=== PATIENT | male | born 1945 | race Caucasian/White ===

== ENCOUNTER 2016-10-20 06:43 | Outpatient (CLI) | payer MEDICARE, OTHER ==
[~2016-10-20] VITALS: Ht 193 cm; Wt 111.1 kg
[~2016-10-20 06:43] MED LIST: AMLO5TAB2 PO; ASPI1TAB PO; BRIM1OPD OU; CENT1TAB PO; OLIV500C PO; TRAV04OPD OU
[2016-10-20] MEDS ORDERED: NS 1,000 ML IV ONE (07:00)
[2016-10-20] MEDS ORDERED: PROPOFOL 500 MG/50 ML VIAL As Ordered ONE (07:14)
[2016-10-20] MEDS ORDERED: GENT3OPD OD (07:27)
[2016-10-20] MEDS ORDERED: LIDOCAINE 2% INJ 100 MG/5 ML SDV (FOR ANES.) As Ordered ONE (08:23)
--- NOTE | 2016-10-20 08:33 | ROOR ---
Patient Name: Pollo Sotelo Procedure Date: 10/20/2016 8:13 AM Date of : 1945 Age: 71 Room: [facility] Gender: Male Note Status: Finalized Procedure: Upper Endoscopy + Biopsies Indications: Heartburn, Follow-up of Delgado's esophagus Providers: Olu Wick MD Referring MD: AL MCKEON JR, MD Requesting Provider: Medicines: Monitored Anesthesia Care Complications: No immediate complications. Procedure: Pre-Anesthesia Assessment: - The heart rate, respiratory rate, oxygen saturations, blood pressure, adequacy of pulmonary ventilation, and response to care were monitored throughout the procedure. The Endoscope was introduced through the mouth, and advanced to the second part of duodenum. The upper GI endoscopy was accomplished without difficulty. The patient tolerated the procedure well. Findings: The Z-line was irregular and was found 40 cm from the incisors. Multiple biopsies were obtained with cold forceps for evaluation to rule out Delgado's Esophagus randomly at the gastroesophageal junction. A small hiatal hernia was present. Localized mild inflammation characterized by erythema and aphthous ulcerations was found in the gastric antrum. The exam of the duodenum was otherwise normal. Impression: - Z-line irregular, 40 cm from the incisors. - Small hiatal hernia. - Acute gastritis. - Multiple biopsies were obtained at the gastroesophageal junction. Recommendation: - Patient has a contact number available for emergencies. The signs and symptoms of potential delayed complications were discussed with the patient. Return to normal activities tomorrow. Written discharge instructions were provided to the patient. - High fiber diet. - Discharge patient to home. - Follow an antireflux regimen. - Continue present medications. - Await pathology results. - Telephone GI clinic for pathology results in 1 week. - Return to referring physician. - Repeat upper endoscopy in 3 years for surveillance based on pathology results. - Check Portal Online for Path Results.([email or web address] - The findings and recommendations were discussed with the patient's family. Olu Wick MD Olu Wick MD 10/20/2016 8:33:09 AM This report has been signed electronically. Number of Addenda: 0 Note Initiated On: 10/20/2016 8:13 AM Estimated Blood Loss: Estimated blood loss: none.
[2016-10-20] MEDS ORDERED: GLYCOPYRROLATE INJ 0.2 MG/ML 2 ML VIAL As Ordered ONE (08:45)
--- NOTE | 2016-10-20 08:55 | ROOR ---
Patient Name: Pollo Sotelo Procedure Date: 10/20/2016 8:14 AM Date of : 1945 Age: 71 Room: [facility] Gender: Male Note Status: Finalized Procedure: Total Colonoscopy to Cecum + Cold Snare Polypectomy + Biopsy Polypectomy Indications: Screening for colorectal malignant neoplasm, Last colonoscopy: 2006 Providers: Olu Wick MD Referring MD: AL MCKEON JR, MD Requesting Provider: Medicines: Monitored Anesthesia Care Complications: No immediate complications. Procedure: Pre-Anesthesia Assessment: - The heart rate, respiratory rate, oxygen saturations, blood pressure, adequacy of pulmonary ventilation, and response to care were monitored throughout the procedure. The Colonoscope was introduced through the anus and advanced to the cecum, identified by appendiceal orifice and ileocecal valve. The colonoscopy was performed without difficulty. The patient tolerated the procedure well. The quality of the bowel preparation was excellent. Findings: The perianal and digital rectal examinations were normal. Non-bleeding internal hemorrhoids were found during retroflexion. The hemorrhoids were small and Grade I (internal hemorrhoids that do not prolapse). Multiple small and large-mouthed diverticula were found in the recto-sigmoid colon, sigmoid colon and descending colon. A small polyp was found at 30 cm proximal to the anus. The polyp was sessile. The polyp was removed with a jumbo cold forceps. Resection and retrieval were complete. A medium polyp was found at 40 cm proximal to the anus. The polyp was sessile. The polyp was removed with a cold snare. Resection and retrieval were complete. A small polyp was found in the proximal transverse colon. The polyp was sessile. The polyp was removed with a jumbo cold forceps. Resection and retrieval were complete. The exam was otherwise without abnormality on direct and retroflexion views. Impression: - Non-bleeding internal hemorrhoids. - Diverticulosis in the recto-sigmoid colon, in the sigmoid colon and in the descending colon. - One small polyp at 30 cm proximal to the anus, removed with a jumbo cold forceps. Resected and retrieved. - One medium polyp at 40 cm proximal to the anus, removed with a cold snare. Resected and retrieved. - One small polyp in the proximal transverse colon, removed with a jumbo cold forceps. Resected and retrieved. - The examination was otherwise normal on direct and retroflexion views. - The exam was otherwise normal to the cecum. Recommendation: - Patient has a contact number available for emergencies. The signs and symptoms of potential delayed complications were discussed with the patient. Return to normal activities tomorrow. Written discharge instructions were provided to the patient. - High fiber diet. - Discharge patient to home. - Continue present medications. - Await pathology results. - Telephone GI clinic for pathology results in 1 week. - Check Portal Online for Path Results.([email or web address]) - Repeat colonoscopy in 5 years for surveillance based on pathology results. - The findings and recommendations were discussed with the patient's family. Olu Wick MD Olu Wick MD 10/20/2016 8:55:13 AM This report has been signed electronically. Number of Addenda: 0 Note Initiated On: 10/20/2016 8:14 AM Estimated Blood Loss: Estimated blood loss: none.
[2016-10-20 09:20] VITALS: BP 148/77
== END 2016-10-20 09:22 | disposition home or self-care (01) ==
LOC: M OPP 06:43
PROVIDERS: ATTEND Internal Medicine Gastroenterology
DX: Z12.11 Encounter for screening for malignant neoplasm of colon (principal); K64.0 First degree hemorrhoids; K57.30 Diverticulosis of large intestine without perforation or abscess without bleeding; D12.5 Benign neoplasm of sigmoid colon; D12.3 Benign neoplasm of transverse colon; R12 Heartburn; K22.8 Other specified diseases of esophagus; K44.9 Diaphragmatic hernia without obstruction or gangrene; K22.70 Barrett's esophagus without dysplasia; I10 Essential (primary) hypertension; K59.00 Constipation, unspecified; G51.0 Bell's palsy; A69.20 Lyme disease, unspecified; Z86.61 Personal history of infections of the central nervous system; Z79.899 Other long term (current) drug therapy; Z79.82 Long term (current) use of aspirin

== ENCOUNTER → 2017-06-08 | Outpatient (REF) | payer MEDICARE, OTHER ==
[2017-06-10 12:29] LABS: HEPATITIS C VIRUS ABY INDEX < 0.0 INDEX (<0.8)
== END ==
LOC: M LAB REF 16:40
DX: Z01.89 Encounter for other specified special examinations (principal)
CPT/HCPCS: 86803

== ENCOUNTER 2018-03-07 06:46 | Day surgery (SDC) | payer MEDICARE, OTHER ==
[~2018-03-07] VITALS: Ht 190.5 cm; Wt 109.0 kg
[~2018-03-07 06:46] MED LIST changes: -AMLO5TAB2 PO; +AMLO5TAB6 PO; +CRES10TA32 PO; +GENT3OPD OD; +LR 1,000 ML IV ONE; +OMEP40CA2 PO; +ceFAZolin SOD 1 GM in D5W MINI-BAG PLUS 50 ML IV ONE
[2018-03-07] MEDS ORDERED: PROPOFOL 200 MG/20 ML VIAL As Ordered ONE (08:04)
[2018-03-07] MEDS ORDERED: fentaNYL 100 MCG/2 ML INJECTION (J3010) As Ordered ONE ×2 (08:04→09:16)
[2018-03-07] MEDS ORDERED: MIDAZOLAM INJ 2 MG/2 ML VIAL (J2250) As Ordered ONE (08:04)
[2018-03-07] MEDS ORDERED: METOCLOPRAMIDE INJ 10MG/2ML VIAL (J2765) As Ordered ONE (08:04)
[2018-03-07] MEDS ORDERED: LIDOCAINE 2% INJ 100 MG/5 ML SDV (FOR ANES.) As Ordered ONE (08:04)
[2018-03-07] MEDS ORDERED: SUCCINYLCHOLINE 100 MG/5 ML SYRINGE (J0330) As Ordered ONE (08:04)
[2018-03-07] MEDS ORDERED: ONDANSETRON 4MG/2ML VIAL (J2405) As Ordered ONE (08:04)
[2018-03-07] MEDS ORDERED: BUPIVACAINE/EPIN 0.25% 30 ML VIAL As Ordered ONE (08:35)
[2018-03-07] MEDS ORDERED: BUPIVACAINE LIPOSOME/PF 1.3% 20ML VIAL (13.3MG/ML)(EXPAREL)(C9290 PER1MG) As Ordered ONE (08:36)
[2018-03-07] MEDS ORDERED: BUPIVACAINE HCL 0.25% 30 ML VIAL As Ordered ONE (08:36)
[2018-03-07] MEDS ORDERED: SUGAMMADEX SODIUM 500 MG/5 ML VIAL (BRIDION) As Ordered ONE (09:39)
[2018-03-07] MEDS ORDERED: LR 1,000 ML IV SCH ×2 (10:15→10:30)
[2018-03-07] MEDS ORDERED: NORCO, ANEXSIA 5/325MG TABLET (HYDROcodone/ACETAMINOPHEN) PO PRN (10:15)
[2018-03-07] MEDS ORDERED: ONDANSETRON 4MG/2ML VIAL (J2405) IV PRN ×2 (10:15→10:30)
[2018-03-07] MEDS ORDERED: PERCOCET 5MG/325MG TAB PO PRN (10:30)
[2018-03-07] MEDS ORDERED: fentaNYL 100 MCG/2 ML INJECTION (J3010) IV PRN (10:30)
[2018-03-07] MEDS ORDERED: MEPERIDINE INJ 25 MG/ML VIAL (J2175) IV PRN (10:30)
[2018-03-07] MEDS ORDERED: METOCLOPRAMIDE INJ 10MG/2ML VIAL (J2765) IV PRN (10:30)
[2018-03-07] MEDS ORDERED: KETOROLAC 30 MG/ML VIAL (J1885) IV SCH (11:00)
[2018-03-07 11:20] VITALS: BP 165/80
--- NOTE | 2018-03-10 16:37 | RO ---
DATE OF PROCEDURE: 03/07/2018 PREOPERATIVE DIAGNOSIS: Umbilical hernia. POSTOPERATIVE DIAGNOSIS: Umbilical hernia. PROCEDURE: Umbilical hernia repair. SURGEON: Dr. Lex Long ANESTHESIA: General endotracheal anesthesia ESTIMATED BLOOD LOSS: Was minimal. FLUIDS: Crystalloid. BRIEF PROCEDURE SUMMARY: The patient was taken operating room and was given general anesthesia after adequate anesthesia and preoperative antibiotics were given the patient was prepped and draped in sterile fashion. Next a periumbilical incision was made with skin knife. Blunt dissection was carried down to fascia. Fascia was circumferentially cleared of hernia sac and then the hernia sac was transected at the base. The fascial defect was not significantly large and thus this was closed with two [id number] Ethilon sutures. The dermis was approximated with 3-0 Vicryl, 4-0 Vicryl was used to approximate the skin. Steri-Strips and a dry sterile dressing was applied. The patient was awakened from his anesthesia, extubated, brought to the recovery room awake, alert and hemodynamically stable. Sponge and needle counts correct times two.
== END 2018-03-07 11:30 | disposition home or self-care (01) ==
LOC: M SDC 06:46
PROVIDERS: ATTEND Surgery
DX: K42.9 Umbilical hernia without obstruction or gangrene (principal); I10 Essential (primary) hypertension; E78.00 Pure hypercholesterolemia, unspecified; K21.9 Gastro-esophageal reflux disease without esophagitis; Q76.49 Other congenital malformations of spine, not associated with scoliosis; Z79.899 Other long term (current) drug therapy; Z86.61 Personal history of infections of the central nervous system; Z86.19 Personal history of other infectious and parasitic diseases; Z87.891 Personal history of nicotine dependence
CPT/HCPCS: 49585; 88302; C9290; J0330; J0690; J2250; J2405; J2765; J3010

== ENCOUNTER → 2019-09-12 | Outpatient (REF) | payer MEDICARE, OTHER ==
[~2019-09-12] MED LIST changes: +AMLO1TAB24 PO; -AMLO5TAB6 PO; -ASPI1TAB PO; +ASPI81TA26 PO; +CRES10TA PO; -CRES10TA32 PO; +GENT0.3S36 OD; -GENT3OPD OD; -LR 1,000 ML IV ONE; -OMEP40CA2 PO; +OMEP40CA97 PO; -ceFAZolin SOD 1 GM in D5W MINI-BAG PLUS 50 ML IV ONE
[2019-11-08 12:27] LABS: PSA TOTAL See Separate Report
== END ==
LOC: M LAB REF 15:14
PROVIDERS: ATTEND Internal Medicine
DX: N40.0 Benign prostatic hyperplasia without lower urinary tract symptoms (principal); R97.20 Elevated prostate specific antigen [PSA]

== ENCOUNTER → 2021-01-27 | Outpatient (REF) | payer MEDICARE, OTHER ==
[~2021-01-27] MED LIST changes: +OMEP40CA4 PO; -OMEP40CA97 PO
[2021-01-27 12:02] LABS: BACTERIA, URINE AUTO NEGATIVE (NEGATIVE); MUCUS, URINE SMALL (NEGATIVE); RBC, URINE AUTO TNTC /HPF (0-3); SQUAMOUS EPITHELIAL CELL UR AU 0 /HPF (0-6); WBC, URINE AUTO 1 /HPF (0-3)
== END ==
LOC: M LAB REF 11:20
PROVIDERS: ATTEND Internal Medicine
DX: R31.0 Gross hematuria (principal)

== ENCOUNTER → 2021-01-28 | Outpatient (CLI) | payer MEDICARE, OTHER ==
[~2021-01-28] MED LIST changes: +ISOVUE-370 76% 100ML VIAL ONE
== END ==
LOC: M PLAIMG 10:42
PROVIDERS: ATTEND Internal Medicine
DX: N40.1 Benign prostatic hyperplasia with lower urinary tract symptoms (principal); R31.0 Gross hematuria
CPT/HCPCS: 74178; Q9967

== ENCOUNTER → 2021-03-04 | Outpatient (REF) | payer MEDICARE, OTHER ==
[~2021-03-04] MED LIST changes: -ISOVUE-370 76% 100ML VIAL ONE
[2021-03-04 18:34] LABS: APPEARANCE, URINE CLEAR (CLEAR); BACTERIA, URINE AUTO NEGATIVE (NEGATIVE); BILIRUBIN, URINE AUTO NEGATIVE (NEGATIVE); BLOOD, URINE BLOOD NEGATIVE (NEGATIVE); COLOR, URINE YELLOW (YELLOW); GLUCOSE, URINE (UA) AUTO NEGATIVE (NEGATIVE); KETONE, URINE AUTO TRACE mg/dL (NEGATIVE); LEUKOCYTE ESTERASE, URINE AUTO 2+ (NEGATIVE); MUCUS, URINE SMALL (NEGATIVE); NITRITE, URINE AUTO NEGATIVE (NEGATIVE); PROTEIN, URINE AUTO NEGATIVE (NEGATIVE); RBC, URINE AUTO 2 /HPF (0-3); SPECIFIC GRAVITY URINE AUTO 1.017 (1.002-1.035); SQUAMOUS EPITHELIAL CELL UR AU 0 /HPF (0-6); UROBILINOGEN, URINE AUTO 0.2 mg/dL (0.0-2.0); WBC, URINE AUTO 21 /HPF (0-3)
== END ==
LOC: M SMT 17:01
PROVIDERS: ATTEND Physician Assistant
DX: N40.1 Benign prostatic hyperplasia with lower urinary tract symptoms (principal)

== ENCOUNTER → 2021-05-14 | Outpatient (REF) | payer MEDICARE, OTHER ==
[2021-05-14 14:13] LABS: APPEARANCE, URINE MANUAL TURBID (CLEAR); COLOR, URINE MANUAL RED (YELLOW)
[2021-05-14 14:14] LABS: BILIRUBIN, URINE MANUAL NEGATIVE (NEGATIVE); BLOOD URINE MANUAL POSITIVE (NEGATIVE); GLUCOSE, URINE (UA) MANUAL NEGATIVE (NEGATIVE); KETONE, URINE MANUAL NEGATIVE (NEGATIVE); LEUKOCYTE ESTERASE, URINE MAN TRACE (NEGATIVE); NITRITE, URINE MANUAL NEGATIVE (NEGATIVE); PROTEIN, URINE MANUAL 2+ mg/dL (NEGATIVE); UROBILINOGEN, URINE MANUAL NORMAL (NORMAL)
[2021-05-14 14:23] LABS: BACTERIA, URINE MOD AMOUNT; HYALINE CAST, URINE NONE SEEN /lpf (0-1); RBC, URINE TNTC /hpf (0-3); SQUAMOUS EPITHELIAL CELL URINE NONE SEEN /hpf (SMALL AMT); WBC, URINE TNTC /hpf (0-3)
== END ==
LOC: M SMT 12:40
PROVIDERS: ATTEND Physician Assistant
DX: R31.0 Gross hematuria (principal)

== ENCOUNTER → 2021-06-02 | Outpatient (CLI) | payer MEDICARE, OTHER ==
[~2021-06-02] MED LIST changes: +BIMA01SOL OD; +FINA5TAB2 PO; +FLOM0.4C39 PO; +OLIV250C PO
== END ==
LOC: M WUC 09:07
PROVIDERS: ATTEND Physician Assistant
DX: Z01.818 Encounter for other preprocedural examination (principal); R91.1 Solitary pulmonary nodule

== ENCOUNTER → 2021-06-02 | Outpatient (REF) | payer MEDICARE, OTHER ==
[2021-06-02 12:18] LABS: APPEARANCE, URINE CLEAR (CLEAR); BACTERIA, URINE AUTO NEGATIVE (NEGATIVE); BILIRUBIN, URINE AUTO NEGATIVE (NEGATIVE); BLOOD, URINE BLOOD NEGATIVE (NEGATIVE); COLOR, URINE YELLOW (YELLOW); GLUCOSE, URINE (UA) AUTO NEGATIVE (NEGATIVE); KETONE, URINE AUTO NEGATIVE (NEGATIVE); LEUKOCYTE ESTERASE, URINE AUTO NEGATIVE (NEGATIVE); NITRITE, URINE AUTO NEGATIVE (NEGATIVE); PROTEIN, URINE AUTO NEGATIVE (NEGATIVE); RBC, URINE AUTO 0 /HPF (0-3); SPECIFIC GRAVITY URINE AUTO 1.013 (1.002-1.035); SQUAMOUS EPITHELIAL CELL UR AU 0 /HPF (0-6); UROBILINOGEN, URINE AUTO 0.2 mg/dL (0.0-2.0); WBC, URINE AUTO 0 /HPF (0-3)
== END ==
LOC: M LAB REF 11:56
PROVIDERS: ATTEND Internal Medicine
DX: Z01.818 Encounter for other preprocedural examination (principal)

== ENCOUNTER → 2021-06-05 | Outpatient (CLI) | payer MEDICARE, OTHER | LOC: M LABSMTC 10:21 | PROVIDERS: ATTEND Anesthesiology | DX: Z01.812 Encounter for preprocedural laboratory examination (principal); Z20.822 Contact with and (suspected) exposure to COVID-19 ==

== ENCOUNTER 2021-06-10 07:20 | Day surgery (SDC) | payer MEDICARE, OTHER ==
[~2021-06-10] VITALS: Ht 190.5 cm; Wt 114.9 kg
[~2021-06-10 07:20] MED LIST changes: +LIDOCAINE 1% MDV 20ML VIAL SQ PRN; +LR 1,000 ML IV ONE; +ceFAZolin SOD 2 GM in IV 1 EA IV ONE
[2021-06-10] MEDS ORDERED: MIDAZOLAM INJ 2MG/2ML VIAL (J2250 PER 1MG) As Ordered ONE (07:51)
[2021-06-10] MEDS ORDERED: LIDOCAINE 2% 100MG/5ML SDV (FOR ANES.) As Ordered ONE (07:52)
[2021-06-10] MEDS ORDERED: fentaNYL 100 MCG/2 ML INJECTION As Ordered ONE (07:52)
[2021-06-10] MEDS ORDERED: ONDANSETRON 4MG/2ML VIAL As Ordered ONE (07:52)
[2021-06-10] MEDS ORDERED: dexameTHASONE 4 MG/ML 1ML VIAL (J1100 PER 1MG) As Ordered ONE (07:52)
[2021-06-10] MEDS ORDERED: propofoL 200 MG/20 ML VIAL As Ordered ONE (07:52)
[2021-06-10] MEDS ORDERED: ISOVUE-300 61% 50ML VIAL As Ordered ONE (08:28)
[2021-06-10] MEDS ORDERED: ACETAMINOPHEN 1000MG 100ML IV BTL (OFIRMEV) (J0131 PER 10MG) As Ordered ONE (09:05)
[2021-06-10] MEDS ORDERED: ePHEDrine SULFATE 25 MG/5 ML(5MG/ML) SYRINGE As Ordered ONE (09:47)
[2021-06-10] MEDS ORDERED: ONDANSETRON 4MG/2ML VIAL IV PRN (10:15)
[2021-06-10] MEDS ORDERED: LR 1,000 ML IV SCH (10:15)
[2021-06-10] MEDS ORDERED: oxyCODONE 5MG TAB PO PRN (10:15)
[2021-06-10] MEDS ORDERED: fentaNYL 100 MCG/2 ML INJECTION IV PRN (10:15)
[2021-06-10] MEDS ORDERED: ACETAMINOPHEN TAB 650MG DOSE (2X325MG) PO PRN (10:20)
[2021-06-10 10:44] VITALS: BP 161/77
== END 2021-06-10 11:08 | disposition home or self-care (01) ==
LOC: M SDC 07:20
PROVIDERS: ATTEND Urology
DX: R31.0 Gross hematuria (principal); I10 Essential (primary) hypertension; N40.0 Benign prostatic hyperplasia without lower urinary tract symptoms; E78.5 Hyperlipidemia, unspecified; K21.9 Gastro-esophageal reflux disease without esophagitis; Z79.899 Other long term (current) drug therapy; E66.9 Obesity, unspecified
CPT/HCPCS: 52332; 74420; C1769; C2617; J0131; J0690; J1100; J2250; J2405; J3010; Q9967

== ENCOUNTER → 2021-06-19 | Outpatient (CLI) | payer MEDICARE, OTHER ==
[~2021-06-19] MED LIST changes: -LIDOCAINE 1% MDV 20ML VIAL SQ PRN; -LR 1,000 ML IV ONE; -ceFAZolin SOD 2 GM in IV 1 EA IV ONE
== END ==
LOC: M RAD 13:42
PROVIDERS: ATTEND Internal Medicine
DX: R91.1 Solitary pulmonary nodule (principal)

== ENCOUNTER → 2021-12-09 | Outpatient (CLI) | payer MEDICARE, OTHER | LOC: M LABSMTC 09:14 | PROVIDERS: ATTEND Anesthesiology | DX: Z01.812 Encounter for preprocedural laboratory examination (principal); Z11.52 Encounter for screening for COVID-19 ==

== ENCOUNTER 2021-12-14 07:33 | Day surgery (SDC) | payer MEDICARE, OTHER ==
[~2021-12-14] VITALS: Ht 190.5 cm; Wt 110.6 kg
[~2021-12-14 07:33] MED LIST changes: +NS 1,000 ML IV ONE
[2021-12-14] MEDS ORDERED: fentaNYL 100 MCG/2 ML INJECTION As Ordered ONE (08:44)
[2021-12-14] MEDS ORDERED: propofoL 200 MG/20 ML VIAL As Ordered ONE (08:44)
[2021-12-14] MEDS ORDERED: LIDOCAINE 2% 100MG/5ML SDV (FOR ANES.) As Ordered ONE (08:44)
[2021-12-14 09:42] VITALS: BP 181/85
== END 2021-12-14 09:51 | disposition home or self-care (01) ==
LOC: M OPP 07:33
PROVIDERS: ATTEND Internal Medicine Gastroenterology
DX: Z12.11 Encounter for screening for malignant neoplasm of colon (principal); Z86.010 Personal history of colon polyps; K57.30 Diverticulosis of large intestine without perforation or abscess without bleeding; K64.0 First degree hemorrhoids; K44.9 Diaphragmatic hernia without obstruction or gangrene; K21.00 Gastro-esophageal reflux disease with esophagitis, without bleeding; Z79.02 Long term (current) use of antithrombotics/antiplatelets; Z79.899 Other long term (current) drug therapy; Z80.3 Family history of malignant neoplasm of breast; I10 Essential (primary) hypertension; F41.9 Anxiety disorder, unspecified; E78.00 Pure hypercholesterolemia, unspecified; N40.0 Benign prostatic hyperplasia without lower urinary tract symptoms
CPT/HCPCS: 43239; 88305; G0105; J3010

== ENCOUNTER → 2022-03-12 | Outpatient (REF) | payer MEDICARE, OTHER ==
[~2022-03-12] MED LIST changes: -NS 1,000 ML IV ONE
[2022-03-18 13:08] LABS: H PYLORI STOOL ANTIGEN Negative (Negative)
== END ==
LOC: M LAB REF 14:21
PROVIDERS: ATTEND Internal Medicine
DX: R19.7 Diarrhea, unspecified (principal)

== ENCOUNTER → 2022-04-21 | Outpatient (REF) | payer MEDICARE, OTHER ==
[2022-04-21 13:57] LABS: APPEARANCE, URINE HAZY (CLEAR); BACTERIA, URINE AUTO NEGATIVE (NEGATIVE); BILIRUBIN, URINE AUTO NEGATIVE (NEGATIVE); BLOOD, URINE BLOOD NEGATIVE (NEGATIVE); COLOR, URINE AMBER (YELLOW); GLUCOSE, URINE (UA) AUTO NEGATIVE (NEGATIVE); KETONE, URINE AUTO TRACE mg/dL (NEGATIVE); LEUKOCYTE ESTERASE, URINE AUTO NEGATIVE (NEGATIVE); MUCUS, URINE SMALL (NEGATIVE); NITRITE, URINE AUTO NEGATIVE (NEGATIVE); PROTEIN, URINE AUTO NEGATIVE (NEGATIVE); RBC, URINE AUTO 1 /HPF (0-3); SPECIFIC GRAVITY URINE AUTO 1.018 (1.002-1.035); SQUAMOUS EPITHELIAL CELL UR AU 0 /HPF (0-6); UROBILINOGEN, URINE AUTO 0.2 mg/dL (0.0-2.0); WBC, URINE AUTO 1 /HPF (0-3)
== END ==
LOC: M SMT 13:12
PROVIDERS: ATTEND Physician Assistant
DX: N40.1 Benign prostatic hyperplasia with lower urinary tract symptoms (principal); R35.0 Frequency of micturition; R35.1 Nocturia; Z80.42 Family history of malignant neoplasm of prostate; Z87.898 Personal history of other specified conditions; Z79.899 Other long term (current) drug therapy
CPT/HCPCS: 81001; 87086; G0463

== ENCOUNTER → 2022-11-29 | Outpatient (REF) | payer MEDICARE, OTHER ==
[2022-11-29 18:09] LABS: APPEARANCE, URINE CLEAR (CLEAR); BACTERIA, URINE AUTO NEGATIVE (NEGATIVE); BILIRUBIN, URINE AUTO NEGATIVE (NEGATIVE); BLOOD, URINE BLOOD NEGATIVE (NEGATIVE); COLOR, URINE YELLOW (YELLOW); GLUCOSE, URINE (UA) AUTO NEGATIVE (NEGATIVE); KETONE, URINE AUTO NEGATIVE (NEGATIVE); LEUKOCYTE ESTERASE, URINE AUTO TRACE (NEGATIVE); NITRITE, URINE AUTO NEGATIVE (NEGATIVE); PROTEIN, URINE AUTO NEGATIVE (NEGATIVE); RBC, URINE AUTO 0 /HPF (0-3); SPECIFIC GRAVITY URINE AUTO 1.018 (1.002-1.035); SQUAMOUS EPITHELIAL CELL UR AU 0 /HPF (0-6); UROBILINOGEN, URINE AUTO 0.2 mg/dL (0.0-2.0); WBC, URINE AUTO 0 /HPF (0-3)
== END ==
LOC: M SMT 16:56
PROVIDERS: ATTEND Physician Assistant
DX: R31.0 Gross hematuria (principal)

== ENCOUNTER → 2023-05-26 | Outpatient (REF) | payer MEDICARE, OTHER ==
[2023-05-26 17:48] LABS: TOTAL 25(OH) VITAMIN D 32.3 NG/ML (20.0-100.0)
== END ==
LOC: M LAB REF 11:43
PROVIDERS: ATTEND Internal Medicine
DX: H35.3131 Nonexudative age-related macular degeneration, bilateral, early dry stage (principal); Z79.899 Other long term (current) drug therapy

== ENCOUNTER → 2023-06-07 | Outpatient (CLI) | payer MEDICARE, OTHER ==
[~2023-06-07] MED LIST changes: +ACET-683 PO; +AREDS PO; +BACI1TAB20 PO; +PRES10CA2 PO; +XALA0.007 OU
[2023-06-07 14:04] LABS: BASO % 0.3 % (0.0-1.0); HEMATOCRIT 39.4 % (42.0-52.0); HEMOGLOBIN 13.5 g/dl (13.5-17.5); LYMPH # 0.6 10^3/uL (1.5-5.0); LYMPH % 8.1 % (24.0-44.0); MEAN CORPUSCULAR HEMOGLOBIN 31.5 pg (27.0-33.0); MEAN CORPUSCULAR HGB CONC 34.3 g/dl (32.0-36.5); MEAN CORPUSCULAR VOLUME 92.1 fl (80.0-96.0); MONO # 0.5 10^3/uL (0.0-0.8); MONO % 7.1 % (2.0-8.0); NEUTROPHILS # 5.8 10^3/uL (1.5-8.5); NEUTROPHILS % 83.9 % (36.0-66.0); PLATELET COUNT, AUTOMATED 117 10^3/uL (150-450); RED BLOOD COUNT 4.28 10^6/uL (4.30-6.10); WHITE BLOOD COUNT 6.9 10^3/uL (4.0-10.0)
[2023-06-07 14:28] LABS: LIPASE 30 U/L (12-53)
[2023-06-07 14:29] LABS: AMYLASE 39 U/L (30-118)
[2023-06-07 14:30] LABS: ALBUMIN 3.2 G/DL (3.2-5.2); ALKALINE PHOSPHATASE 77 U/L (46-116); ALT/SGPT 15 U/L (7.0-40); AST/SGOT 19 U/L (<34); BLOOD UREA NITROGEN 18 MG/DL (9-23); CALCIUM LEVEL 8.6 MG/DL (8.3-10.6); CARBON DIOXIDE LEVEL 26 MMOL/L (20-31); CHLORIDE LEVEL 100 MMOL/L (98-107); CREATININE FOR GFR 1.12 MG/DL (0.70-1.30); GLOMERULAR FILTRATION RATE > 60.0 (>42); GLUCOSE, FASTING 152 MG/DL (74-106); POTASSIUM SERUM 4.1 MMOL/L (3.5-5.1); SODIUM LEVEL 133 MMOL/L (136-145); TOTAL PROTEIN 6.2 G/DL (5.7-8.2)
== END ==
LOC: M WUC 10:37
PROVIDERS: ATTEND Physician Assistant
DX: R53.83 Other fatigue (principal); R53.1 Weakness; R05.9 Cough, unspecified

== ENCOUNTER 2023-06-08 08:46 | Inpatient (IN) | payer MEDICARE, OTHER ==
[~2023-06-08] VITALS: Ht 190.5 cm; Wt 119.0 kg
[~2023-06-08 08:46] MED LIST changes: -ACET-683 PO; -AREDS PO; -BACI1TAB20 PO; -PRES10CA2 PO; -XALA0.007 OU
[2023-06-08] MEDS ORDERED: AREDS PO (09:04)
[2023-06-08] MEDS ORDERED: BACI1TAB20 PO (09:04)
[2023-06-08] MEDS ORDERED: ACET-683 PO (09:13)
[2023-06-08] MEDS: NS 1,000 ML IV ONE (10:05)
[2023-06-08 10:25] LABS: BASO % 0.2 % (0.0-1.0); EOS % 0.2 % (0.0-3.0); HEMATOCRIT 37.6 % (42.0-52.0); HEMOGLOBIN 13.1 g/dl (13.5-17.5); LYMPH # 0.7 10^3/uL (1.5-5.0); LYMPH % 10.7 % (24.0-44.0); MEAN CORPUSCULAR HEMOGLOBIN 31.2 pg (27.0-33.0); MEAN CORPUSCULAR HGB CONC 34.8 g/dl (32.0-36.5); MEAN CORPUSCULAR VOLUME 89.5 fl (80.0-96.0); MONO # 0.5 10^3/uL (0.0-0.8); MONO % 8.2 % (2.0-8.0); NEUTROPHILS # 5.2 10^3/uL (1.5-8.5); NEUTROPHILS % 80.4 % (36.0-66.0); PLATELET COUNT, AUTOMATED 104 10^3/uL (150-450); WHITE BLOOD COUNT 6.5 10^3/uL (4.0-10.0)
[2023-06-08 10:43] LABS: APPEARANCE, URINE HAZY (CLEAR); BACTERIA, URINE AUTO NEGATIVE (NEGATIVE); BILIRUBIN, URINE AUTO NEGATIVE (NEGATIVE); BLOOD, URINE BLOOD NEGATIVE (NEGATIVE); COLOR, URINE AMBER (YELLOW); GLUCOSE, URINE (UA) AUTO NEGATIVE (NEGATIVE); KETONE, URINE AUTO TRACE mg/dL (NEGATIVE); LEUKOCYTE ESTERASE, URINE AUTO NEGATIVE (NEGATIVE); MUCUS, URINE MODERATE (NEGATIVE); NITRITE, URINE AUTO NEGATIVE (NEGATIVE); PROTEIN, URINE AUTO 2+ mg/dL (NEGATIVE); RBC, URINE AUTO 10 /HPF (0-3); SPECIFIC GRAVITY URINE AUTO 1.032 (1.002-1.035); SQUAMOUS EPITHELIAL CELL UR AU 0 /HPF (0-6); WBC, URINE AUTO 3 /HPF (0-3)
[2023-06-08 10:57] LABS: ALBUMIN 3.1 G/DL (3.2-5.2); ALKALINE PHOSPHATASE 75 U/L (46-116); ALT/SGPT 20 U/L (7.0-40); AST/SGOT 34 U/L (<34); BILIRUBIN,TOTAL 0.9 MG/DL (0.3-1.2); BLOOD UREA NITROGEN 18 MG/DL (9-23); CALCIUM LEVEL 8.5 MG/DL (8.3-10.6); CARBON DIOXIDE LEVEL 26 MMOL/L (20-31); CHLORIDE LEVEL 99 MMOL/L (98-107); CREATININE FOR GFR 1.05 MG/DL (0.70-1.30); GLOMERULAR FILTRATION RATE > 60.0 (>42); GLUCOSE, FASTING 111 MG/DL (74-106); MAGNESIUM LEVEL 1.8 MG/DL (1.8-2.4); POTASSIUM SERUM 3.9 MMOL/L (3.5-5.1); SODIUM LEVEL 132 MMOL/L (136-145); TOTAL PROTEIN 6.2 G/DL (5.7-8.2)
[2023-06-08 10:59] LABS: THYROID STIMULATING HORMONE 1.857 uIU/ML (0.55-4.78)
[2023-06-08 11:00] LABS: FREE T4 1.15 NG/DL (0.89-1.76)
[2023-06-08] MEDS: ACETAMINOPHEN TAB 650MG DOSE (2X325MG) PO ONE (11:05)
[2023-06-08] MEDS ORDERED: ISOVUE-370 76% 100ML VIAL As Ordered ONE (11:22)
[2023-06-08] MEDS: IBUPROFEN 600MG TAB PO ONE (12:43)
[2023-06-08] MEDS: cefTRIAXone SOD 1 GM in D5W MINI-BAG PLUS 50 ML IV ONE (12:44)
[2023-06-08] MEDS ORDERED: MAALOX 30 ML SUSP *UDC PO PRN (13:30)
[2023-06-08] MEDS ORDERED: MOM 30ML SUSPENSION UDC PO PRN (13:30)
[2023-06-08] MEDS: ALBUTEROL SULFATE 2.5MG/0.5ML INH NEB SOLN NEB ONE (13:38)
[2023-06-08] MEDS ORDERED: XALA0.007 OU (13:58)
[2023-06-08] MEDS ORDERED: PRES10CA2 PO (13:58)
[2023-06-08] MEDS ORDERED: HOME MED LIST COMPLETE! XX SCH (14:00)
[2023-06-08] MEDS: DOCUSATE SODIUM 100MG CAPSULE PO SCH (14:26)
[2023-06-08] MEDS: LevoFLOXacin IV 750 MG in IV 1 EA IV SCH (14:26)
[2023-06-08 14:27] LABS: PROCALCITONIN 0.22 ng/ml
[2023-06-08] MEDS: NS 1,000 ML IV SCH (14:27)
[2023-06-08] MEDS: guaiFENesin ER TABLET 600 MG TAB PO SCH (14:27)
[2023-06-08] MEDS: DOXYCYCLINE HYCLATE 100MG TABLET PO ONE (14:27)
[2023-06-08 15:01] VITALS: BP 121/57; TEMP 97.8; O2SAT 94
[2023-06-08 20:00] VITALS: BP 162/97; TEMP 99.9; O2SAT 97
[2023-06-08] MEDS: BRIMONIDINE 0.1% OPHTH SOLN 5ML OU SCH (20:01)
[2023-06-08] MEDS: LACTOBACILLUS ACIDOPHILUS CAP (BACID) PO SCH (20:01)
[2023-06-08] MEDS: TAMSULOSIN 0.4 MG CAP PO SCH (20:01)
[2023-06-09] VITALS (7 sets, daily range): BP systolic 140–158; BP diastolic 63–78; TEMP 97.1–101.8; O2SAT 93–97
[2023-06-09] MEDS: ACETAMINOPHEN TAB 650MG DOSE (2X325MG) PO PRN (00:23)
[2023-06-09 06:27] LABS: BASO % 0.2 % (0.0-1.0); EOS % 0.2 % (0.0-3.0); HEMATOCRIT 34.4 % (42.0-52.0); LYMPH # 0.6 10^3/uL (1.5-5.0); LYMPH % 12.6 % (24.0-44.0); MEAN CORPUSCULAR HEMOGLOBIN 31.4 pg (27.0-33.0); MEAN CORPUSCULAR HGB CONC 34.9 g/dl (32.0-36.5); MEAN CORPUSCULAR VOLUME 90.1 fl (80.0-96.0); MONO # 0.5 10^3/uL (0.0-0.8); MONO % 11.1 % (2.0-8.0); NEUTROPHILS # 3.5 10^3/uL (1.5-8.5); NEUTROPHILS % 75.5 % (36.0-66.0); RED BLOOD COUNT 3.82 10^6/uL (4.30-6.10); WHITE BLOOD COUNT 4.6 10^3/uL (4.0-10.0)
[2023-06-09 06:30] LABS: BLOOD UREA NITROGEN 22 MG/DL (9-23); CARBON DIOXIDE LEVEL 21 MMOL/L (20-31); CHLORIDE LEVEL 103 MMOL/L (98-107); CREATININE FOR GFR 1.06 MG/DL (0.70-1.30); GLOMERULAR FILTRATION RATE > 60.0 (>42); GLUCOSE, FASTING 108 MG/DL (74-106); MAGNESIUM LEVEL 1.6 MG/DL (1.8-2.4); POTASSIUM SERUM 3.9 MMOL/L (3.5-5.1); SODIUM LEVEL 133 MMOL/L (136-145)
[2023-06-09 06:55] LABS: PLATELET COUNT, AUTOMATED 89 10^3/uL (150-450)
[2023-06-09] MEDS: ROSUVASTATIN 10 MG TAB (CRESTOR) PO SCH (08:47)
[2023-06-09] MEDS: OMEPRAZOLE 20MG CAP PO SCH (08:47)
[2023-06-09] MEDS: FINASTERIDE 5MG TAB PO SCH (08:47)
[2023-06-09] MEDS: amLODIPine 5 MG TAB PO SCH (08:48)
[2023-06-09] MEDS: MAG SULF 1GM/100ML (MAG RUN) 1 GM in IV 1 EA IV SCH (08:48)
[2023-06-09] MEDS: LATANOPROST 0.005% OPHTH SOLN 2.5 ML OU SCH ×2 (08:49→20:07)
[2023-06-09] MEDS: MULTIVITAMINS/MINERALS THERAP 1 TAB PO SCH (08:57)
[2023-06-09] MEDS: ENOXAPARIN 40MG/0.4ML SYRINGE (J1650 PER 10MG) SC SCH (09:00)
[2023-06-10 03:24] VITALS: BP 152/94; TEMP 97.7; O2SAT 95
[2023-06-10 05:45] LABS: BASO % 0.2 % (0.0-1.0); EOS % 0.8 % (0.0-3.0); HEMATOCRIT 36.9 % (42.0-52.0); HEMOGLOBIN 12.9 g/dl (13.5-17.5); LYMPH # 0.6 10^3/uL (1.5-5.0); LYMPH % 12.3 % (24.0-44.0); MEAN CORPUSCULAR HEMOGLOBIN 31.3 pg (27.0-33.0); MEAN CORPUSCULAR VOLUME 89.6 fl (80.0-96.0); MONO # 0.4 10^3/uL (0.0-0.8); MONO % 8.6 % (2.0-8.0); NEUTROPHILS # 3.8 10^3/uL (1.5-8.5); NEUTROPHILS % 77.5 % (36.0-66.0); PLATELET COUNT, AUTOMATED 122 10^3/uL (150-450); RED BLOOD COUNT 4.12 10^6/uL (4.30-6.10); WHITE BLOOD COUNT 4.9 10^3/uL (4.0-10.0)
[2023-06-10 06:13] LABS: BLOOD UREA NITROGEN 17 MG/DL (9-23); CALCIUM LEVEL 7.8 MG/DL (8.3-10.6); CARBON DIOXIDE LEVEL 23 MMOL/L (20-31); CHLORIDE LEVEL 104 MMOL/L (98-107); CREATININE FOR GFR 0.83 MG/DL (0.70-1.30); GLOMERULAR FILTRATION RATE > 60.0 (>42); GLUCOSE, FASTING 100 MG/DL (74-106); MAGNESIUM LEVEL 1.9 MG/DL (1.8-2.4); POTASSIUM SERUM 3.8 MMOL/L (3.5-5.1); SODIUM LEVEL 134 MMOL/L (136-145)
[2023-06-10 07:21] VITALS: BP 172/81; TEMP 98.3; O2SAT 93
[2023-06-10] MEDS: MAG SULF 1GM/100ML (MAG RUN) 1 GM in IV 1 EA IV ONE (09:42)
[2023-06-10] MEDS: POTASSIUM CHLORIDE 10MEQ SR TABLET PO ONE (09:44)
[2023-06-10 09:47] LABS: PROCALCITONIN 0.17 ng/ml
[2023-06-10 10:34] LABS: CK-MB VALUE MASS 8.9 NG/ML (<3.6)
[2023-06-10 10:35] LABS: MB/CK RELATIVE INDEX 0.94 (< OR =4)
[2023-06-10] MEDS: CARVedilol 6.25 MG TAB PO SCH (11:26)
[2023-06-10 11:51] VITALS: BP 130/97; TEMP 97.1; O2SAT 93
[2023-06-10] MEDS: LevoFLOXacin 750 MG TABLET PO SCH (14:48)
[2023-06-10 15:08] LABS: MYCOPLASMA PNEUMONIAE IgG 110 U/mL (0-99); MYCOPLASMA PNEUMONIAE IgM <770 U/mL (0-769)
[2023-06-10 16:54] VITALS: BP 172/86; TEMP 97.2; O2SAT 98
[2023-06-10 20:21] VITALS: BP 163/84; TEMP 97.2; O2SAT 98
[2023-06-10] MEDS: traZODone 25MG PER 1/2 TABLET PO PRN (21:54)
[2023-06-11 00:19] VITALS: BP 161/88; TEMP 97.4; O2SAT 97
[2023-06-11 04:53] VITALS: BP 177/94; TEMP 97.4; O2SAT 95
[2023-06-11 07:17] LABS: BASO % 0.3 % (0.0-1.0); EOS # 0.1 10^3/uL (0.0-0.5); EOS % 1.8 % (0.0-3.0); HEMATOCRIT 34.4 % (42.0-52.0); HEMOGLOBIN 12.1 g/dl (13.5-17.5); LYMPH # 0.7 10^3/uL (1.5-5.0); LYMPH % 18.2 % (24.0-44.0); MEAN CORPUSCULAR HEMOGLOBIN 30.8 pg (27.0-33.0); MEAN CORPUSCULAR HGB CONC 35.2 g/dl (32.0-36.5); MEAN CORPUSCULAR VOLUME 87.5 fl (80.0-96.0); MONO # 0.4 10^3/uL (0.0-0.8); MONO % 10.6 % (2.0-8.0); NEUTROPHILS # 2.7 10^3/uL (1.5-8.5); NEUTROPHILS % 68.8 % (36.0-66.0); PLATELET COUNT, AUTOMATED 145 10^3/uL (150-450); RED BLOOD COUNT 3.93 10^6/uL (4.30-6.10); WHITE BLOOD COUNT 3.9 10^3/uL (4.0-10.0)
[2023-06-11 07:36] LABS: BLOOD UREA NITROGEN 14 MG/DL (9-23); CALCIUM LEVEL 8.1 MG/DL (8.3-10.6); CARBON DIOXIDE LEVEL 25 MMOL/L (20-31); CHLORIDE LEVEL 105 MMOL/L (98-107); CREATININE FOR GFR 0.76 MG/DL (0.70-1.30); GLOMERULAR FILTRATION RATE > 60.0 (>42); GLUCOSE, FASTING 99 MG/DL (74-106); MAGNESIUM LEVEL 1.9 MG/DL (1.8-2.4); POTASSIUM SERUM 4.1 MMOL/L (3.5-5.1); SODIUM LEVEL 136 MMOL/L (136-145)
[2023-06-11 07:40] VITALS: BP 174/84; TEMP 97.3; O2SAT 97
[2023-06-11] MEDS ORDERED: LEVO1TAB40 PO (08:33)
[2023-06-11] MEDS ORDERED: CARV3.12 PO (08:34)
[2023-06-11] MEDS ORDERED: LOSA50TA28 PO ×2 (08:36→11:43)
[2023-06-11] MEDS: CARVedilol 3.125 MG TAB PO SCH (09:00)
[2023-06-11] MEDS: LOSARTAN 50MG TABLET PO SCH (09:12)
[2023-06-11] MEDS ORDERED: ISOS20TA4 PO (11:44)
[2023-06-11 12:07] VITALS: BP 188/98
[2023-06-11] MEDS: cloNIDine 0.1MG TABLET PO ONE (12:07)
[2023-06-11] MEDS: LOSARTAN 50MG TABLET PO ONE (12:08)
== END 2023-06-11 14:47 | disposition home or self-care (01) | DRG 871 ==
LOC: M ED 08:46 → M ED INP 13:26 → M PCU 14:52
PROVIDERS: ADMIT Internal Medicine; ATTEND Internal Medicine
PROC: B246ZZZ Ultrasonography of Right and Left Heart (ICD-10-PCS; principal; 2023-06-08)
DX: A41.9 Sepsis, unspecified organism (principal); J15.7 Pneumonia due to Mycoplasma pneumoniae; E87.1 Hypo-osmolality and hyponatremia; I47.20 Ventricular tachycardia, unspecified; E78.5 Hyperlipidemia, unspecified; E66.9 Obesity, unspecified; N40.0 Benign prostatic hyperplasia without lower urinary tract symptoms; H35.30 Unspecified macular degeneration; H40.9 Unspecified glaucoma; K21.9 Gastro-esophageal reflux disease without esophagitis; I10 Essential (primary) hypertension; E83.42 Hypomagnesemia; D64.9 Anemia, unspecified; I27.20 Pulmonary hypertension, unspecified; Z79.899 Other long term (current) drug therapy; Z11.52 Encounter for screening for COVID-19

== ENCOUNTER → 2023-07-13 | Outpatient (REF) | payer MEDICARE, OTHER ==
[~2023-07-13] MED LIST changes: +ACET-683 PO; +AREDS PO; +BACI1TAB20 PO; +CARV3.12 PO; +ISOS20TA4 PO; +LEVO1TAB40 PO; +LOSA50TA28 PO; +PRES10CA2 PO; +XALA0.007 OU
== END ==
LOC: M LAB REF 13:07
PROVIDERS: ATTEND Internal Medicine
DX: Z11.59 Encounter for screening for other viral diseases (principal)

== ENCOUNTER → 2023-07-14 | Outpatient (CLI) | payer MEDICARE, OTHER | LOC: M WUC 14:19 | PROVIDERS: ATTEND Internal Medicine | DX: M54.50 Low back pain, unspecified (principal); M85.88 Other specified disorders of bone density and structure, other site ==

== ENCOUNTER → 2023-07-26 | Outpatient (CLI) | payer MEDICARE, OTHER | LOC: M PLAIMG 10:04 | PROVIDERS: ATTEND Internal Medicine | DX: J15.7 Pneumonia due to Mycoplasma pneumoniae (principal) ==

== ENCOUNTER → 2023-08-23 | Outpatient (CLI) | payer MEDICARE, OTHER | LOC: M WHC 13:18 | PROVIDERS: ATTEND Internal Medicine | DX: M85.851 Other specified disorders of bone density and structure, right thigh (principal); M85.852 Other specified disorders of bone density and structure, left thigh ==

== ENCOUNTER → 2023-10-24 | Outpatient (CLI) | payer MEDICARE, OTHER | LOC: M SLEEP 20:00 | PROVIDERS: ATTEND Internal Medicine Critical Care Medicine | DX: G47.30 Sleep apnea, unspecified (principal); G47.31 Primary central sleep apnea ==

== ENCOUNTER → 2023-12-01 | Outpatient (REF) | payer MEDICARE, OTHER ==
[2023-12-01 18:24] LABS: APPEARANCE, URINE HAZY (CLEAR); BACTERIA, URINE AUTO NEGATIVE (NEGATIVE); BILIRUBIN, URINE AUTO NEGATIVE (NEGATIVE); BLOOD, URINE BLOOD NEGATIVE (NEGATIVE); COLOR, URINE AMBER (YELLOW); GLUCOSE, URINE (UA) AUTO NEGATIVE (NEGATIVE); KETONE, URINE AUTO NEGATIVE (NEGATIVE); LEUKOCYTE ESTERASE, URINE AUTO TRACE (NEGATIVE); NITRITE, URINE AUTO NEGATIVE (NEGATIVE); PROTEIN, URINE AUTO NEGATIVE (NEGATIVE); RBC, URINE AUTO 0 /HPF (0-3); SPECIFIC GRAVITY URINE AUTO 1.017 (1.002-1.035); SQUAMOUS EPITHELIAL CELL UR AU 0 /HPF (0-6); UROBILINOGEN, URINE AUTO 0.2 mg/dL (0.0-2.0); WBC, URINE AUTO 2 /HPF (0-3)
== END ==
LOC: M SMT 16:59
PROVIDERS: ATTEND Physician Assistant
DX: Z87.898 Personal history of other specified conditions (principal)

== ENCOUNTER → 2024-01-14 | Outpatient (CLI) | payer MEDICARE, OTHER | LOC: M SLEEP 20:00 | PROVIDERS: ATTEND Internal Medicine Critical Care Medicine | DX: G47.33 Obstructive sleep apnea (adult) (pediatric) (principal) ==

== ENCOUNTER → 2024-03-19 | Outpatient (REF) | payer MEDICARE, OTHER ==
[2024-03-19 15:09] LABS: APPEARANCE, URINE HAZY (CLEAR); BACTERIA, URINE AUTO NEGATIVE (NEGATIVE); BILIRUBIN, URINE AUTO NEGATIVE (NEGATIVE); BLOOD, URINE BLOOD NEGATIVE (NEGATIVE); COLOR, URINE YELLOW (YELLOW); GLUCOSE, URINE (UA) AUTO NEGATIVE (NEGATIVE); KETONE, URINE AUTO NEGATIVE (NEGATIVE); LEUKOCYTE ESTERASE, URINE AUTO NEGATIVE (NEGATIVE); MUCUS, URINE SMALL (NEGATIVE); NITRITE, URINE AUTO NEGATIVE (NEGATIVE); PROTEIN, URINE AUTO NEGATIVE (NEGATIVE); RBC, URINE AUTO 1 /HPF (0-3); SPECIFIC GRAVITY URINE AUTO 1.023 (1.002-1.035); SQUAMOUS EPITHELIAL CELL UR AU 0 /HPF (0-6); UROBILINOGEN, URINE AUTO 0.2 mg/dL (0.0-2.0); WBC, URINE AUTO 2 /HPF (0-3)
== END ==
LOC: M SMT 13:06
PROVIDERS: ATTEND Physician Assistant
DX: Z87.898 Personal history of other specified conditions (principal)

== ENCOUNTER → 2024-05-29 | Outpatient (REF) | payer MEDICARE, OTHER | LOC: M LAB REF 11:54 | PROVIDERS: ATTEND Internal Medicine | DX: N40.1 Benign prostatic hyperplasia with lower urinary tract symptoms (principal); R42 Dizziness and giddiness ==

== ENCOUNTER → 2024-06-07 | Outpatient (CLI) | payer MEDICARE, OTHER ==
[~2024-06-07] MED LIST changes: -BRIM1OPD OU; +BRIM5DRO25 OU; -FLOM0.4C39 PO; +INDA1.253 PO; +REST0.05 OU; +ROSU10TA61 PO; +TAMS-18 PO
== END ==
LOC: M SLEEP 20:00
PROVIDERS: ATTEND Internal Medicine Critical Care Medicine
DX: G47.33 Obstructive sleep apnea (adult) (pediatric) (principal); G47.31 Primary central sleep apnea

== ENCOUNTER 2024-06-27 06:36 | Day surgery (SDC) | payer MEDICARE, OTHER ==
[~2024-06-27] VITALS: Ht 190.5 cm; Wt 115.6 kg
[~2024-06-27 06:36] MED LIST changes: +PHENYLEPHRINE 10% OPHTH SOL 5ML OS PRN
[2024-06-27] MEDS: LIDOCAINE 3.5 % 1ML OPHTH TOPICAL GEL OU ONE (06:50)
[2024-06-27] MEDS: OFLOXACIN 0.3 % (OCUFLOX) OPTH SOL 5ML OS ONE (06:50)
[2024-06-27] MEDS: PHENYLEPHRINE 2.5% OPHTH SOL 2ML OS SCH (06:50)
[2024-06-27] MEDS: CYCLOPENTOLATE 1% OPHTH SOLN 2ML BTL OS SCH (06:50)
[2024-06-27] MEDS: TROPICAMIDE 1% OPHTH SOLN 15ML OS SCH (06:50)
[2024-06-27] MEDS ORDERED: MIDAZOLAM INJ 2MG/2ML VIAL As Ordered ONE (06:56)
[2024-06-27] MEDS ORDERED: fentaNYL 100 MCG/2 ML INJECTION As Ordered ONE (06:58)
[2024-06-27] MEDS: CEFUROXIME 1MG/0.1ML INTRACAMERAL INJ As Ordered ONE (08:14)
[2024-06-27] MEDS: LIDOCAINE 1% SDV 5ML VIAL As Ordered ONE (08:14)
[2024-06-27] MEDS ORDERED: GLYCOPYRROLATE INJ 0.2 MG/ML 2 ML VIAL As Ordered ONE (08:24)
[2024-06-27 08:40] VITALS: BP 154/78; TEMP 98.4; O2SAT 96
== END 2024-06-27 08:53 | disposition home or self-care (01) ==
LOC: M SDC 06:36
PROVIDERS: ATTEND Ophthalmology
DX: H26.9 Unspecified cataract (principal); H57.03 Miosis; G47.30 Sleep apnea, unspecified; Z79.899 Other long term (current) drug therapy
CPT/HCPCS: 66982; J0697; J1596; J2250; J3010; V2632

== ENCOUNTER → 2024-09-12 | Outpatient (CLI) | payer MEDICARE, OTHER ==
[~2024-09-12] MED LIST changes: -PHENYLEPHRINE 10% OPHTH SOL 5ML OS PRN
== END ==
LOC: M EKG 15:20
PROVIDERS: ATTEND Internal Medicine Critical Care Medicine
DX: I49.9 Cardiac arrhythmia, unspecified (principal); R00.1 Bradycardia, unspecified